=== PATIENT | female | born 1985 | race Caucasian/White ===

== ENCOUNTER → 2020-12-12 | Emergency (ER) | payer BC ==
[~2020-12-12] MED LIST: DOCUSATE SODIU100 MG PO; NAPROXEN250 MG PO; ROXICODONE TAB 55 MG PO
[2020-12-12 21:56] LABS: RED BLOOD COUNT 3.96 M/UL (4.00-5.10); WHITE BLOOD COUNT 9.1 K/UL (4.5-11.0)
[2020-12-12 22:08] LABS: BUN/CREATININE RATIO 14 (0-10)
== END | disposition home or self-care (01) ==
LOC: ER1 20:41
PROVIDERS: Physician Assistant
DX: O20.9 Hemorrhage in early pregnancy, unspecified (principal); Z3A.10 10 weeks gestation of pregnancy
CPT/HCPCS: 80053; 81001; 84702; 85025; 86900; 86901; 99284

== ENCOUNTER → 2020-12-14 | Day surgery (SDC) | payer BC ==
[2020-12-14 09:45] LABS: HEMOGLOBIN 13.3 gm/dl (12.3-15.3); RED BLOOD COUNT 4.02 M/UL (4.00-5.10); WHITE BLOOD COUNT 9.5 K/UL (4.5-11.0)
== END | disposition home or self-care (01) ==
LOC: OR 08:33
PROVIDERS: Obstetrics & Gynecology
DX: O03.4 Incomplete spontaneous abortion without complication (principal); Z20.822 Contact with and (suspected) exposure to COVID-19
CPT/HCPCS: 36415; 81001; 85025; J1100; J1885; J2001; J2250; J2405; J2704; J3010; J7120; U0002